=== PATIENT | male | born 1990 | race Hispanic/Latino ===

== ENCOUNTER 2017-04-24 01:13 | Emergency (ER) | payer OTHER ==
[2017-04-24 01:38] VITALS: BP 130/78; PULSE 119; RESP 16; TEMP 98; O2SAT 98
--- NOTE | 2017-04-24 01:42 | ED PDOC ---
HPI: General Adult Time Seen by Provider: 04/24/17 01:25 Chief Complaint (Nursing): Medical Clearance Chief Complaint (Provider): clearace for incarceration Additional History Per: Patient Additional Complaint(s): 27 y/o male here in police custody for clearance for incarceration. Patient states he had right bicep tendon repair 2 weeks ago at [facility] and has been in immobilizer and tonight during arrest states he right arm was grabbed and attempted to be brought around his back. Patient denies numbness/weakness right upper extremity. Past Medical History Reviewed: Historical Data, Nursing Documentation, Vital Signs Vital Signs: Last Vital Signs Temp 98.0 F 04/24/17 01:35 Pulse 119 H 04/24/17 01:35 Resp 16 04/24/17 01:35 BP 130/78 04/24/17 01:35 Pulse Ox 98 04/24/17 01:45 - Medical History PMH: No Chronic Diseases - Family History Family History: States: No Known Family Hx - Allergies Allergies/Adverse Reactions: Allergies Allergy/AdvReac Type Severity Reaction Status Date / Time No Known Allergies Allergy Verified 04/24/17 01:38 Review of Systems ROS Statement: Except As Marked, All Systems Reviewed And Found Negative Musculoskeletal: Positive for: Arm Pain Physical Exam - Reviewed Nursing Documentation Reviewed: Yes Vital Signs Reviewed: Yes - Physical Exam Appears: Positive for: Well, Non-toxic, Uncomfortable (agitated, aggressive) Head Exam: Positive for: ATRAUMATIC, NORMAL INSPECTION, NORMOCEPHALIC Skin: Positive for: Normal Color Cardiovascular/Chest: Positive for: Regular Rate, Rhythm Respiratory: Positive for: Normal Breath Sounds Pulses-Radial (L): 2+ Pulses-Radial (R): 2+ Extremity: Positive for: Normal ROM (right upper arm in post-op elbow immobilizer, stockinette in place with small amount of dried blood noted over suture site. No odor, discharge noted. Distal NV, motor intact), Capillary Refill (<2 sec bilateral upper extremities). Negative for: Swelling - ECG O2 Sat by Pulse Oximetry: 98 - Progress ED Course And Treament: Patient refusing to have splint/stockinette removed for further evaluation, states he only wants his doctor's to look at them and his follow up appointment is within the week. Advised to keep appointment as scheduled. New sling given. Return precautions given. Disposition - Clinical Impression Clinical Impression: Status post tendon repair, Adjustment disorder - Patient ED Disposition Is Patient to be Admitted: No Counseled Patient/Family Regarding: Diagnosis, Need For Followup - Disposition Disposition: Discharged/Transfer to Law Enforcement Disposition Time: 02:20 Condition: STABLE Additional Instructions: Patient medically and psychiatrically cleared for incarceration Follow up with [facility] as scheduled. Return to ED for worsening/concerning symptoms. Forms: [employer] ([place]e)
== END 2017-04-24 02:35 ==
LOC: H.ER 01:13